=== PATIENT | female | born 1945 | race Caucasian/White ===

== ENCOUNTER 2024-11-05 18:56 | Emergency (ER) | payer OTHER, SELFPAY ==
[2024-11-05] VITALS (7 sets, daily range): BP systolic 180–207; BP diastolic 80–116; PULSE 88–120; RESP 18; TEMP 36.6–36.8; O2SAT 98–100; BMI 24.2
--- NOTE | 2024-11-05 19:19 | DI.RAD.S_ITS ---
PROCEDURE: XR TIBIA FUBULA RT 2V INDICATIONS: injury TECHNIQUE: 2 views of the tibia and fibula were acquired. COMPARISON: None. FINDINGS: Bones: No fractures or dislocations. No suspicious bony lesions. Soft tissues: No suspicious soft tissue calcifications or masses. IMPRESSION: No visible fracture. Dictated by: Chante Ricks M.D. on 11/05/2024 at 20:58 Approved by: Chante Ricks M.D. on 11/05/2024 at 20:58
--- NOTE | 2024-11-05 20:24 | ED.LOWEXIN ---
HPI - Extremity Injury (Lower) General Chief Complaint: Extremity Injury, Lower Stated Complaint: R Leg Injury/Swelling Time Seen by Provider: 11/05/24 20:22 Source: patient Mode of arrival: Ambulatory History of Present Illness HPI Narrative: 79-year-old female no daily medications takes aspirin occasionally. Patient states she banged her leg pretty hard into a table earlier today. Had bruising pretty immediately afterwards. She did some compression to the area noticed some swelling above the compression and some bruising that has spread. Patient states she does bruise fairly easily she does not feel like it is atypical but she bruises easily or that other people from trauma. She has not had any inappropriate bleeding. Patient states no daily anticoagulants or aspirin. She does occasionally take aspirin. She states no daily medications. No recent surgeries. No known drug allergies. No tobacco. She notes she has been ambulating of the leg that is a little bit uncomfortable but she states not severely painful. Denies any other trauma or injuries. Denies any numbness or tingling. Notes some bruising on her hand where her dog had accidentally scratched her with that is nail. Related Data Home Medications Medication Instructions Recorded Confirmed No Known Home Medications 11/05/24 11/05/24 Allergies Allergy/AdvReac Type Severity Reaction Status Date / Time No Known Drug Allergies Allergy Verified 11/05/24 19:17 Review of Systems Review of Systems ROS Unobtainable: All systems reviewed & are unremarkable except as noted in HPI and below Patient History Social History Smoking Status: Never smoker Smoking Status: Never smoker Exam Narrative Exam Narrative: GENERAL: Alert and oriented x three, elderly female in mild distress HEENT: Head normocephalic, atraumatic, EOMI, pupils reactive, face symmetric, moist mucous membranes NECK: Supple, full range of motion CARDIOVASCULAR: Regular rate and rhythm without murmurs, rubs or gallops. RESPIRATORY: Breath sounds equal bilaterally, no wheezes rales or rhonchi. ABDOMEN: Soft, nontender. Normoactive bowel sounds all 4 quadrants. No guarding or rebound, rigidity, no mass : No CVA tenderness EXTREMITIES: Normal range of motion, no clubbing. Patient has some ecchymosis of her left calf somewhat circumferential but majority is in the left medial side. Patient notes she had an Eliazar wrapped around the lower portion and some of the bruising and swelling sort of has pushed upwards from that site. Has sort of wrapped around over time as her leg has been sitting flat. She has no bony tenderness on examination. She has swelling and ecchymosis does have a hematoma present. Neurovascularly intact. 2+ dorsalis pedis. Normal sensation throughout. Normal range of motion. NEUROLOGICAL: Cranial nerves II through XII grossly intact. Moving all extremities SKIN: Warm, dry, no petechiae, no rashes or lesions, patient has small area of ecchymosis on her right hand with an abrasion overlying. Initial Vital Signs Initial Vital Signs: Vital Signs Temperature 98 F 11/05/24 19:07 Pulse Rate 101 H 11/05/24 19:07 Respiratory Rate 18 11/05/24 19:07 Blood Pressure 203/104 H 11/05/24 19:07 Pulse Oximetry 98 11/05/24 19:07 Oxygen Delivery Method Room Air 11/05/24 19:07 Course Orders Ordered: ED Orders 11/05/24 19:19 XR tibia fibula RT 2V Stat Vital Signs Vital signs: Vital Signs - 8 hr 11/05/24 21:33 Temperature 98.3 F MDM - Extremity Injury (Lower) MDM Narrative Medical decision making narrative: Tib-fib x-ray negative for fracture. Not noted in xray report but does have changes consistent with hematoma on imaging. 79-year-old female notes she does bruise little bit easier she was not on any anticoagulants at baseline. Patient does have what appears to be hematoma appears to be little bit of spread based on gravity of the bruising. Does not appear to be rapidly expanding. She notes she had an Eliazar wrap tightly over the lower portion of her leg she has had some swelling above it since then. Patient has nontender exam. I suspect she was more of a hematoma no active bleed. This occurred at noon today and has not had rapid expansion in the department. Patient did have Eliazar wrap placed for compression over the entire area of bruising by nursing, no additional spread here in the department. Reviewed patient's imaging with the patient and her family. Return precautions, treatment. Discharge Plan Departure Patient Disposition: Home Clinical Impression: Hematoma of left lower extremity Instructions: DI for Hematoma (Bruise) Activity Restrictions/Additional Instructions: Follow up for recheck as needed. You appear to have developed a little bit of a hematoma of the calf from where you injured your leg. You can continue with Eliazar wrap for compression over the area of bruising and elevation. There maybe some movement of the bruise secondary to gravity. If you see expansion or the bruise moving outwards that would be a reason to return for evaluation. Please return for fevers, rapidly worsening bruising or expanding hematoma, new pain of your lower extremity numbness, tingling or weakness, any bleeding or other new or concerning changes. Prescriptions: No Action No Known Home Medications Stand Alone Forms: Patient Portal/API/Survey
--- NOTE | 2024-11-05 21:02 | PC.NURSE ---
Patients right lower leg wrapped with a 4 inch elastic bandage per the
== END 2024-11-05 21:34 | disposition home or self-care (01) ==
PROVIDERS: Emergency Provider Emergency Medicine
DX: S80.11XA Contusion of right lower leg, initial encounter (principal); W22.8XXA Striking against or struck by other objects, initial encounter
CPT/HCPCS: 73590; 99281; 99283